=== PATIENT | female | born 1940 | race Caucasian/White ===

== ENCOUNTER 2019-08-21 10:07 | Emergency (ER) | payer MEDICAID, OTHER ==
[~2019-08-21] VITALS: Ht 157.5 cm; Wt 77.6 kg
[2019-08-21 10:13] VITALS: BP 183/85
--- NOTE | 2019-08-21 10:51 | NUR ---
[facility]
--- NOTE | 2019-08-21 11:20 | NUR ---
ASSUMED CARE OF PT, PT TO BED 12, PT ON MONITOR, VSS, NAD NOTED, PENDING MD CUTLER
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
--- NOTE | 2019-08-21 12:09 | NUR ---
Patient discharged to home in stable condition. Written and verbal after care instructions given. Patient verbalizes understanding of instruction.
== END 2019-08-21 12:10 | disposition home or self-care (01) ==
LOC: ER 10:07
DX: S00.83XA Contusion of other part of head, initial encounter (principal); S00.33XA Contusion of nose, initial encounter; I10 Essential (primary) hypertension; Y04.8XXA Assault by other bodily force, initial encounter; Y93.89 Activity, other specified; Y92.89 Other specified places as the place of occurrence of the external cause; Y99.8 Other external cause status
CPT/HCPCS: 70450-TC; 70486-TC